=== PATIENT | female | born 1955 | race African-American/Black ===

== ENCOUNTER → 2023-06-09 15:17 | Outpatient (REF) | payer OTHER, SELFPAY ==
[2023-06-10 19:51] LABS: Urine Albumin Negative (Neg - Trace); Urine Bilirubin Negative (Negative); Urine Character Clear (Clear); Urine Color Yellow; Urine Glucose Negative (Negative); Urine Ketone Negative (Negative); Urine Leukocyte Negative (Negative); Urine Nitrite Negative (Negative); Urine Occult Blood Negative (Negative); Urine Urobilinogen Negative (Neg - 1+)
== END ==
LOC: CLAB 15:17
PROVIDERS: ATTENDING PHYSICIAN Obstetrics & Gynecology
DX: N39.0 Urinary tract infection, site not specified (principal)
CPT/HCPCS: 81003; 87086

== ENCOUNTER → 2023-07-25 07:57 | Outpatient (REF) | payer OTHER, SELFPAY ==
[2023-07-25 08:32] LABS: % Basophils 0.5 % (0-2); % Eosinophils 1.5 % (0-6); % Immature Granulocytes 0.4 % (0-0.5); % Lymphocytes 40.7 % (20.5-51.1); % Monocytes 8.3 % (1.7-9.3); % Neutrophils 48.6 % (42.2-75.2); Absolute Eosinophils 0.1 10^3/uL (0-0.7); Absolute Lymphocytes 3.1 10^3/uL (1.2-3.4); Absolute Monocytes 0.6 10^3/uL (0.1-0.6); Absolute Neutrophils 3.7 10^3/uL (1.4-6.5); Hematocrit 40.7 % (37.0-47.0); Hemoglobin 13.2 g/dL (12.0-16.0); Mean Corp Hgb Conc. 32.4 g/dL (33.0-37.0); Mean Corpuscular Hgb 28.4 pg (27.0-31.0); Mean Corpuscular Volume 87.7 fL (81.0-99.0); Mean Platelet Volume 11.3 fL (7.4-10.4); Nucleated Red Blood Cells % 0 %; Platelet Count 258 10^3/uL (130-400); Red Blood Cell Count 4.64 10^6/uL (4.20-5.40); Red Cell Dist. Width 13.6 % (11.5-14.5); White Blood Cell Count 7.6 10^3/uL (4.8-10.8)
[2023-07-25 08:52] LABS: ALT (SGPT) 33 U/L (0-35); AST (SGOT) 30 U/L (14-36); Albumin 5.1 g/dl (3.5-5.0); Alkaline Phosphatase 79 U/L (38-126); Blood Urea Nitrogen 19 mg/dl (7-17); Calcium 9.9 mg/dl (8.4-10.2); Carbon Dioxide 27 mmol/L (22-30); Chloride 103 mmol/L (98-107); Glucose 111 mg/dl (70-99); HDL Cholesterol 45 mg/dl; LDL Cholesterol, Calculated 69 mg/dl; Potassium 3.9 mmol/L (3.5-5.1); Sodium 142 mmol/L (135-145); Total Bilirubin 0.5 mg/dl (0.2-1.3); Total Cholesterol 129 mg/dl (50-199); Total Protein 7.8 g/dl (6.3-8.2); Triglyceride 78 mg/dl (10-149); Very Low Density Lipoprotein 15 mg/dl (0-30); eGFR > 60.00
[2023-07-25 12:23] LABS: Glycohemoglobin (HgbA1c) 6.2 % (4.0-5.6)
[2023-07-26 10:00] LABS: Intact PTH 61.3 pg/ml (13.6-85.8)
== END ==
LOC: REG 07:57
PROVIDERS: ATTENDING PHYSICIAN Nurse Practitioner Family; FAMILY PHYSICIAN Nurse Practitioner Primary Care
DX: E21.3 Hyperparathyroidism, unspecified (principal); E78.00 Pure hypercholesterolemia, unspecified; R73.03 Prediabetes; K76.0 Fatty (change of) liver, not elsewhere classified; R79.89 Other specified abnormal findings of blood chemistry; R09.81 Nasal congestion; J06.9 Acute upper respiratory infection, unspecified; E78.2 Mixed hyperlipidemia
CPT/HCPCS: 36415; 80053; 80061; 83036; 83970; 85025

== ENCOUNTER → 2023-08-08 12:41 | Outpatient (REF) | payer OTHER, SELFPAY ==
[2023-08-08 15:13] LABS: TSH Reflex To Free T4 2.46 uIU/ml (0.47-4.68)
[2023-08-11 19:37] LABS: Almond <0.10 kU/L (<=0.34); Banana <0.10 kU/L (<=0.34); Blue Mussel <0.10 kU/L (<=0.34); Brazil Nut <0.10 kU/L (<=0.34); Cashew Nut <0.10 kU/L (<=0.34); Clam <0.10 kU/L (<=0.34); Crab <0.10 kU/L (<=0.34); Hazel Nut (Filbert) <0.10 kU/L (<=0.34); Lobster <0.10 kU/L (<=0.34); Macadamia Nut <0.10 kU/L (<=0.34); Mild Peanut Ara h 8 <0.10 kU/L (<=0.09); Milk (Cow's) <0.10 kU/L (<=0.34); Oyster <0.10 kU/L (<=0.34); Peanut <0.10 kU/L (<=0.34); Pecan/White Hickory Tree <0.10 kU/L (<=0.34); Pine (Pinot) Nut <0.10 kU/L (<=0.34); Pistachio <0.10 kU/L (<=0.34); Scallop <0.10 kU/L (<=0.34); Severe Peanut Ara h 1 <0.10 kU/L (<=0.09); Severe Peanut Ara h 2 <0.10 kU/L (<=0.09); Severe Peanut Ara h 3 <0.10 kU/L (<=0.09); Severe Peanut Ara h 6 <0.10 kU/L (<=0.09); Severe Peanut Ara h 9 <0.10 kU/L (<=0.09); Shrimp <0.10 kU/L (<=0.34); Walnut/Black Walnut <0.10 kU/L (<=0.34)
== END ==
LOC: REG 12:41
PROVIDERS: ATTENDING PHYSICIAN Nurse Practitioner Family; FAMILY PHYSICIAN Pediatrics
DX: R53.83 Other fatigue (principal)
CPT/HCPCS: 36415; 84443; 86003; 86008

== ENCOUNTER → 2023-08-12 15:17 | Outpatient (REF) | payer OTHER, SELFPAY | LOC: WDC 15:17 | PROVIDERS: ATTENDING PHYSICIAN Obstetrics & Gynecology Gynecology; FAMILY PHYSICIAN Internal Medicine Geriatric Medicine | DX: Z12.31 Encounter for screening mammogram for malignant neoplasm of breast (principal) | CPT/HCPCS: 77063; 77067 ==

== ENCOUNTER → 2023-10-14 15:10 | Outpatient (REF) | payer OTHER, SELFPAY | LOC: RAD 15:10 | PROVIDERS: ATTENDING PHYSICIAN Internal Medicine Cardiovascular Disease; FAMILY PHYSICIAN Nurse Practitioner Primary Care; OTHER PHYSICIAN Nurse Practitioner Family | DX: R60.0 Localized edema (principal); J18.9 Pneumonia, unspecified organism | CPT/HCPCS: 71046; 93971 ==

== ENCOUNTER → 2023-10-22 15:41 | Outpatient (REF) | payer OTHER, SELFPAY | LOC: RAD 15:41 | PROVIDERS: ATTENDING PHYSICIAN Nurse Practitioner Primary Care | DX: M25.571 Pain in right ankle and joints of right foot (principal); M25.471 Effusion, right ankle | CPT/HCPCS: 73610 ==

== ENCOUNTER → 2023-10-30 15:44 | Outpatient (REF) | payer OTHER, SELFPAY ==
[2023-10-30 16:47] LABS: % Basophils 0.7 % (0-2); % Eosinophils 1.5 % (0-6); % Immature Granulocytes 0.3 % (0-0.5); % Lymphocytes 48.3 % (20.5-51.1); % Monocytes 6.9 % (1.7-9.3); % Neutrophils 42.3 % (42.2-75.2); Absolute Basophils 0.1 10^3/uL (0-0.2); Absolute Eosinophils 0.1 10^3/uL (0-0.7); Absolute Lymphocytes 3.6 10^3/uL (1.2-3.4); Absolute Monocytes 0.5 10^3/uL (0.1-0.6); Absolute Neutrophils 3.2 10^3/uL (1.4-6.5); Hematocrit 39.1 % (37.0-47.0); Hemoglobin 12.7 g/dL (12.0-16.0); Mean Corp Hgb Conc. 32.5 g/dL (33.0-37.0); Mean Corpuscular Hgb 28.2 pg (27.0-31.0); Mean Corpuscular Volume 86.9 fL (81.0-99.0); Mean Platelet Volume 12.1 fL (7.4-10.4); Nucleated Red Blood Cells % 0 %; Platelet Count 259 10^3/uL (130-400); Red Cell Dist. Width 13.2 % (11.5-14.5); White Blood Cell Count 7.5 10^3/uL (4.8-10.8)
[2023-10-30 16:59] LABS: Erythrocyte Sed Rate 20 mm/hour (0-20)
[2023-10-30 17:02] LABS: ALT (SGPT) 30 U/L (0-35); AST (SGOT) 32 U/L (14-36); Albumin 5.1 g/dl (3.5-5.0); Alkaline Phosphatase 91 U/L (38-126); Blood Urea Nitrogen 12 mg/dl (7-17); Calcium 9.8 mg/dl (8.4-10.2); Carbon Dioxide 25 mmol/L (22-30); Chloride 106 mmol/L (98-107); Glucose 85 mg/dl (70-99); Potassium 4.2 mmol/L (3.5-5.1); Sodium 142 mmol/L (135-145); Total Bilirubin 0.8 mg/dl (0.2-1.3); Total Protein 7.9 g/dl (6.3-8.2); Uric Acid 6.6 mg/dl (2.5-6.2); eGFR > 60.00
[2023-10-30 17:39] LABS: TSH Reflex To Free T4 2.15 uIU/ml (0.47-4.68)
[2023-10-31 10:18] LABS: Glycohemoglobin (HgbA1c) 6.2 % (4.0-5.6)
== END ==
LOC: REG 15:44
PROVIDERS: ATTENDING PHYSICIAN Nurse Practitioner Primary Care
DX: M25.571 Pain in right ankle and joints of right foot (principal); M25.471 Effusion, right ankle; R73.03 Prediabetes; E66.09 Other obesity due to excess calories
CPT/HCPCS: 36415; 80053; 83036; 84443; 84550; 85025; 85652; 86140; 86618

== ENCOUNTER → 2023-11-28 12:30 | Outpatient (REF) | payer OTHER, SELFPAY | LOC: PAVMRI 12:30 | PROVIDERS: ATTENDING PHYSICIAN Psychiatry & Neurology Neurology; FAMILY PHYSICIAN Nurse Practitioner Primary Care | DX: F07.81 Postconcussional syndrome (principal); G43.E11 Chronic migraine with aura, intractable, with status migrainosus | CPT/HCPCS: 70553 ==

== ENCOUNTER 2023-12-02 14:12 | Outpatient (RCR) | payer OTHER, SELFPAY | END 2023-12-02 23:59 | disposition home or self-care (01) | LOC: RPT 14:12 | PROVIDERS: ATTENDING PHYSICIAN Physician Assistant | DX: M54.40 Lumbago with sciatica, unspecified side (principal); Z73.6 Limitation of activities due to disability | CPT/HCPCS: 97110; 97112; 97162; 97530 ==

== ENCOUNTER → 2023-12-12 15:04 | Outpatient (REF) | payer OTHER, SELFPAY | LOC: PAVMRI 15:04 | PROVIDERS: ATTENDING PHYSICIAN Nurse Practitioner Primary Care | DX: M25.571 Pain in right ankle and joints of right foot (principal); M25.471 Effusion, right ankle | CPT/HCPCS: 73721 ==

== ENCOUNTER → 2023-12-26 15:23 | Outpatient (REF) | payer OTHER, SELFPAY | LOC: MRI 3T 15:23 | PROVIDERS: ATTENDING PHYSICIAN Nurse Practitioner Primary Care | DX: K86.9 Disease of pancreas, unspecified (principal); K76.0 Fatty (change of) liver, not elsewhere classified; D35.01 Benign neoplasm of right adrenal gland | CPT/HCPCS: 74183; A9575 ==

== ENCOUNTER 2024-01-02 14:08 | Outpatient (RCR) | payer OTHER, SELFPAY | END 2024-01-02 23:59 | disposition home or self-care (01) | LOC: RPT 14:08 | PROVIDERS: ATTENDING PHYSICIAN Physician Assistant | DX: M54.40 Lumbago with sciatica, unspecified side (principal); Z73.6 Limitation of activities due to disability | CPT/HCPCS: 97110; 97112; 97530 ==

== ENCOUNTER 2024-01-16 06:27 | Day surgery (SDC) | payer OTHER, SELFPAY ==
--- NOTE | 2024-01-14 10:01 | PTCARENOTE ---
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 She will be driving herself, made aware she is unable to drive home. She will work on transportation, considering uber. She does not have help at home
after surgery. She was made aware of need for assistance 24 hours following anesthesia. She asked about VN care, I explained it would be private pay and offered to give her contact information. She declined and stated she would make other
arrangements. She does not have anyone staying with her mother during surgery, mentioned possibly bringing her. She was made aware her mother is unable come to hospital unattended. Emerita in Dr. De La Rosa's office made aware of pt's situation.
[2024-01-16] VITALS (12 sets, daily range): BP systolic 126–154; BP diastolic 68–93; BMI 29.1
--- NOTE | 2024-01-16 08:23 | SUR.OPER ---
Dr. De La Rosa was tiger texted Note from PAT department. Patient arrived 55 minutes late from her scheduled arrival time as well. KASI Velazquez SDS Procurement Officer was made aware that RN called patient and she was running late. Marcus called OR desk and made
Lorie RN aware.
[2024-01-16] MEDS: NORMOSOL-R/PLASMALYTE-A 1000 IV (09:09)
== END 2024-01-16 15:06 | disposition home or self-care (01) ==
LOC: SDS 06:27
PROVIDERS: ATTENDING PHYSICIAN Obstetrics & Gynecology Gynecology
DX: N84.0 Polyp of corpus uteri (principal); N95.0 Postmenopausal bleeding
CPT/HCPCS: 58558; 88305

== ENCOUNTER 2024-02-02 14:13 | Outpatient (RCR) | payer OTHER, SELFPAY | END 2024-02-02 23:59 | disposition home or self-care (01) | LOC: RPT 14:13 | PROVIDERS: ATTENDING PHYSICIAN Physician Assistant | DX: M54.40 Lumbago with sciatica, unspecified side (principal); Z73.6 Limitation of activities due to disability | CPT/HCPCS: 97110; 97112; 97530 ==

== ENCOUNTER 2024-02-11 14:28 | Outpatient (RCR) | payer OTHER, SELFPAY | END 2024-02-12 15:30 | disposition home or self-care (01) | LOC: RPT 14:28 | PROVIDERS: ATTENDING PHYSICIAN Physician Assistant | DX: M54.40 Lumbago with sciatica, unspecified side (principal); Z73.6 Limitation of activities due to disability | CPT/HCPCS: 97110; 97530 ==

== ENCOUNTER → 2024-04-07 15:30 | Outpatient (REF) | payer OTHER, SELFPAY | LOC: HWRCS 15:30 | PROVIDERS: ATTENDING PHYSICIAN Physician Assistant Medical; FAMILY PHYSICIAN Nurse Practitioner Primary Care | DX: R07.9 Chest pain, unspecified (principal); I10 Essential (primary) hypertension | CPT/HCPCS: 93306 ==

== ENCOUNTER → 2024-06-08 13:42 | Outpatient (REF) | payer OTHER, SELFPAY ==
[2024-06-08 15:45] LABS: IgA 232 mg/dl (70-400); IgG 1016 mg/dl (700-1600); IgM 54 mg/dl (40-230)
[2024-06-08 16:26] LABS: Hepatitis A Antibody, Total Negative (Negative); Hepatitis C Antibody Negative (Negative)
[2024-06-10 20:17] LABS: ANA, IgG Reflex to HEp-2 None Detected (None Detected)
[2024-06-10 20:50] LABS: LKM-1 Ab (IgG) 0.6 U (0.0-24.9)
[2024-06-10 20:51] LABS: Alpha-1-Antitrypsin 108 mg/dL (90-200); Ceruloplasmin 29 mg/dL (16-45)
[2024-06-10 23:40] LABS: tTG IgA Antibody <1.02 FLU (0.00-4.99)
[2024-06-11 02:26] LABS: F-Actin Antibody IgG 10 Units (0-19)
== END ==
LOC: REG 13:42
PROVIDERS: ATTENDING PHYSICIAN Internal Medicine Gastroenterology; FAMILY PHYSICIAN Nurse Practitioner Primary Care
DX: K76.0 Fatty (change of) liver, not elsewhere classified (principal)
CPT/HCPCS: 36415; 82103; 82390; 82784; 83516; 86015; 86038; 86364; 86376; 86381; 86708; 86803

== ENCOUNTER → 2024-06-21 15:12 | Outpatient (REF) | payer OTHER, SELFPAY ==
[2024-06-21 16:10] LABS: % Basophils 0.8 % (0-2); % Eosinophils 1.4 % (0-6); % Immature Granulocytes 0.5 % (0-0.5); % Lymphocytes 45.3 % (20.5-51.1); % Monocytes 7.1 % (1.7-9.3); % Neutrophils 44.9 % (42.2-75.2); Absolute Basophils 0.1 10^3/uL (0-0.2); Absolute Eosinophils 0.1 10^3/uL (0-0.7); Absolute Lymphocytes 3.4 10^3/uL (1.2-3.4); Absolute Monocytes 0.5 10^3/uL (0.1-0.6); Absolute Neutrophils 3.4 10^3/uL (1.4-6.5); Hemoglobin 12.7 g/dL (12.0-16.0); Mean Corp Hgb Conc. 34.3 g/dL (33.0-37.0); Mean Corpuscular Hgb 28.6 pg (27.0-31.0); Mean Corpuscular Volume 83.3 fL (81.0-99.0); Mean Platelet Volume 10.8 fL (7.4-10.4); Nucleated Red Blood Cells % 0 %; Platelet Count 210 10^3/uL (130-400); Red Blood Cell Count 4.44 10^6/uL (4.20-5.40); White Blood Cell Count 7.6 10^3/uL (4.8-10.8)
[2024-06-21 16:17] LABS: Erythrocyte Sed Rate 5 mm/hour (0-20)
[2024-06-21 16:38] LABS: ALT (SGPT) 49 U/L (0-35); AST (SGOT) 32 U/L (14-36); Albumin 4.6 g/dl (3.5-5.0); Alkaline Phosphatase 96 U/L (38-126); Blood Urea Nitrogen 13 mg/dl (7-17); Calcium 9.3 mg/dl (8.4-10.2); Carbon Dioxide 27 mmol/L (22-30); Chloride 104 mmol/L (98-107); Creatine Phosphokinase 285 U/L (30-135); Glucose 88 mg/dl (70-99); HDL Cholesterol 40 mg/dl; LDL Cholesterol, Calculated 162 mg/dl; Potassium 3.7 mmol/L (3.5-5.1); Sodium 140 mmol/L (135-145); Total Bilirubin 0.5 mg/dl (0.2-1.3); Total Cholesterol 227 mg/dl (50-199); Total Protein 7.3 g/dl (6.3-8.2); Triglyceride 125 mg/dl (10-149); Very Low Density Lipoprotein 25 mg/dl (0-30); eGFR > 60.00
[2024-06-21 16:59] LABS: Vitamin D, 25-OH*** 34.9 ng/mL (30-80)
[2024-06-21 17:12] LABS: TSH Reflex To Free T4 2.44 uIU/ml (0.47-4.68)
[2024-06-22 09:22] LABS: Glycohemoglobin (HgbA1c) 6.3 % (4.0-5.6)
== END ==
LOC: REG 15:12
PROVIDERS: ATTENDING PHYSICIAN Nurse Practitioner Primary Care
DX: E78.00 Pure hypercholesterolemia, unspecified (principal); I10 Essential (primary) hypertension; R73.03 Prediabetes; M25.59 Pain in other specified joint; G44.89 Other headache syndrome
CPT/HCPCS: 36415; 80053; 80061; 82306; 82550; 83036; 84443; 85025; 85652; 86140; 86618

== ENCOUNTER 2024-07-10 17:56 | Emergency (ER) | payer OTHER, SELFPAY ==
[2024-07-10] VITALS (7 sets, daily range): BP systolic 123–185; BP diastolic 69–104; BMI 28.7
[2024-07-10] MEDS: PEPCID 20 MG IV (18:52)
[2024-07-10] MEDS: BENADRYL 25 MG IV (18:53)
[2024-07-10] MEDS: SOLU-MEDROL PF 125 MG IV (18:56)
[2024-07-10 19:05] LABS: Hematocrit 36.9 % (37.0-47.0); Hemoglobin 12.4 g/dL (12.0-16.0); Mean Corp Hgb Conc. 33.6 g/dL (33.0-37.0); Mean Corpuscular Hgb 28.8 pg (27.0-31.0); Mean Corpuscular Volume 85.6 fL (81.0-99.0); Mean Platelet Volume 10.4 fL (7.4-10.4); Platelet Count 253 10^3/uL (130-400); Red Blood Cell Count 4.31 10^6/uL (4.20-5.40); Red Cell Dist. Width 12.8 % (11.5-14.5); White Blood Cell Count 6.7 10^3/uL (4.8-10.8)
[2024-07-10 19:14] LABS: ALT (SGPT) 44 U/L (0-35); AST (SGOT) 42 U/L (14-36); Albumin 4.8 g/dl (3.5-5.0); Alkaline Phosphatase 82 U/L (38-126); Blood Urea Nitrogen 9 mg/dl (7-17); Calcium 9.4 mg/dl (8.4-10.2); Carbon Dioxide 25 mmol/L (22-30); Chloride 104 mmol/L (98-107); Estimated Creatinine Clearance 49 ml/min; Glucose 116 mg/dl (70-99); Potassium 3.2 mmol/L (3.5-5.1); Sodium 142 mmol/L (135-145); Total Bilirubin 0.8 mg/dl (0.2-1.3); Total Protein 7.2 g/dl (6.3-8.2); eGFR > 60.00
[2024-07-10] MEDS: DUONEB 3 ML INH (19:21)
[2024-07-10] MEDS: ADRENALIN 0.3 MG IM (19:21)
[2024-07-10 19:25] LABS: % Basophils 0.3 % (0-2); % Eosinophils 1.8 % (0-6); % Immature Granulocytes 0.4 % (0-0.5); % Lymphocytes 44.5 % (20.5-51.1); Absolute Eosinophils 0.1 10^3/uL (0-0.7); Absolute Monocytes 0.4 10^3/uL (0.1-0.6); Absolute Neutrophils 3.2 10^3/uL (1.4-6.5); Nucleated Red Blood Cells % 0 %
--- NOTE | 2024-07-10 20:05 | ED.GENMED ---
History of Present Illness
General
Chief Complaint: Allergic Reaction
Source: patient
Exam Limitations: none
Time Seen by Provider: 07/10/24 18:38
Nursing documentation reviewed up to this point in time: agreed with
History of Present Illness
History of Present Illness:
69-year-old female with a past medical history of asthma/bronchitis, CAD, hypertension, hyperlipidemia who presents to the emergency room for evaluation of allergic reaction. Patient says she is allergic to many different things. She says that she
was being treated for pneumonia with amoxicillin for for 5 days, yesterday saw her doctor who said that her breath sounds were still abnormal and so she was switched from amoxicillin to Augmentin. Patient took first dose of this last night and this
morning she woke up with puffiness in the face. She says she also felt some tingling/swelling of the tongue. Denies any tightness in the throat or shortness of breath. She does have persistent cough but this has been ongoing for over a week. She
denies any nausea, vomiting, abdominal cramping. She has not noticed any itching or pruritus. She says she has had similar allergic reactions in the past many times.
Past History
Past History
ED Past Medical History: GERD, HTN and Hypercholesterolemia; Negative CAD or [place]
ED Past Surgical History: Gynecological (D&C), Tonsilectomy and Other (Food allergy with walnuts)
Social History
Tobacco: Former smoker
Alcohol: None
Drug: None
Personal: Single
Living: with family
Employment: Employed
Family History
Family History: Hypertension and CAD; Negative Sudden
Review of Systems
Review of Systems
All Other Systems: ROS reviewed and negative except as documented in HPI and ROS
EENT: Reports other (Facial swelling)
Respiratory: Reports cough
Cardiac: Denies chest pain
ABD/GI: Denies abdominal pain, nausea or vomiting
: Denies flank pain
Musculoskeletal: Denies neck pain or back pain
Skin: Denies itching or rash
Neurological: Denies dizzy or headache
Phy Exam
Physical Exam
Physical Exam:
General: Awake, alert, oriented x3; no acute distress
Head: Normocephalic, atraumatic
Face: Patient has some periorbital edema bilaterally as well as some maxillary edema; no significant swelling of the lips
Eyes: Conjunctiva normal
Throat: Airway intact, handling secretions, no swelling of the tongue, midline uvula with no edema
Neck: Trachea midline
Lungs: Patient has occasional cough, scattered wheezing bilaterally
Heart: Regular rate and rhythm, no murmurs, gallops, or rubs
Abd: Soft, non distended, nontender
Neuro: No gross deficits
Skin: no rash or hives appreciated
Extremities: No edema in extremities, warm and well-perfused
Scores
Heart Failure Risk
Heart Failure Risk Score: Not Applicable
Heart Score for Chest Pain Patients
STEMI patient?: Not applicable
Withdrawal Assessment of Alcohol
Withdrawal Assessment Completed?: Not applicable
Course
Orders/Labs/Results
Orders:
Orders
07/10/24 18:43
Diphenhydramine [Benadryl] 25 mg IV NOW STA
Famotidine [Pepcid] 20 mg IV NOW STA
MethylPREDNISolone PF [Solu-Medrol Pf] 125 mg IV NOW STA
07/10/24 18:50
CMP [Comprehensive Metabolic Panel] Urgent
Complete Blood Count/With Diff Urgent
07/10/24 19:08
EPINEPHrine PF [Adrenalin] 0.3 mg IM NOW STA
Ipratropium/Albuterol Sulfate [Duoneb] 3 ml INH R NOW ONE
07/10/24 20:25
CR Chest - 2 Views Urgent
Comment:
Reason For Exam: cough
Abnormal Lab Results
07/10/24
18:50
Hct 36.9 L %
(37.0-47.0)
Potassium 3.2 L mmol/L
(3.5-5.1)
Glucose 116 H mg/dl
(70-99)
AST 42 H U/L
(14-36)
ALT 44 H U/L
(0-35)
07/10/24 18:50
07/10/24 18:50
Vital Signs
Initial and Last Documented VS:
Initial Vital Signs
Temp Pulse Resp BP Pulse Ox
36.3 C 82 16 172/104 98
07/10/24 17:59 07/10/24 17:59 07/10/24 17:59 07/10/24 17:59 07/10/24 17:59
Last Documented Vital Signs
Temp Pulse Resp BP Pulse Ox
36.3 C 79 26 123/69 96
07/10/24 17:59 07/10/24 21:15 07/10/24 21:15 07/10/24 22:00 07/10/24 21:37
MDM/Problems Addressed
Differential Diagnosis Includes:
Allergic reaction
MDM/Problems Addressed:
69-year-old female who presents to the emergency room for evaluation of facial swelling, tongue tingling/swelling started a few hours after her first dose of Augmentin. She has had coughing but this is not an acute issue�was on amoxicillin for
pneumonia switched to Augmentin by PCP since symptoms are not improving. Vitals and exam as above. She does have scattered wheezing suspect more likely from respiratory illness rather than anaphylaxis however she also has some facial edema as well
and so we will plan to treat with IM epinephrine. Treat with steroid, Benadryl, Pepcid. Send basic labs and obtain a chest x-ray with persistent cough. Treat with DuoNeb for wheezing. Reassess after the above.
Facial swelling resolved. Wheezing resolved after treatment. Continue to monitor.
Labs reviewed�no leukocytosis, CMP shows mild hypokalemia otherwise unremarkable. Chest x-ray reviewed by me shows no acute disease. I did review outpatient x-ray from a few days ago�this also showed no pneumonia. Her clinical picture really
seems more consistent with acute bronchitis rather than bacterial pneumonia given her recent allergic reaction would err towards discontinuing antibiotics in favor of course of steroids. She did improve significantly with albuterol�can provide
nebulizer machine and albuterol prescription. Patient very comfortable with this. Observed for 4+ hours with resolution of allergic symptoms; stable for discharge.
Acute Exacerbation and/or Progression of Chronic Illness:
Acutely hypertensive
Acute Exacerbation and/or Progression of Chronic Illness: HTN
*Radiology
Radiology exam reviewed: preliminary read by ED provider
*Pulse Oximetry
Patient hypoxic: no
*Critical Care Note
Total Time (30-74mins, 75-104mins- exclusive of procedures): Not Applicable
Data Reviewed
Review of Other/Old Records Reveals: Labs and Records
Source: patient and records
ED Attending Note
-
Portions of this chart may have been created with voice recognition software.� Occasional wrong word or��sound alike� substitutions may have occurred due to the inherent limitations of voice recognition software.
Discharge Plan
Departure
Patient Disposition: Home (Routine Discharge)
Date of Disposition: 07/10/24
Time of Disposition: 22:25
Patient with high blood pressure during this ER visit?: Yes
Discharge Problem:
Allergic reaction, Acute bronchitis
Instructions: Acute bronchitis in adults, Allergic reaction - ED discharge instructions
Prescriptions:
New
epinephrine [EpiPen 2-Jeff] 0.3 mg/0.3 mL auto-injector
0.3 mg IM ONCE Qty: 2 0RF
prednisone 50 mg tablet
50 mg PO DAILY Qty: 5 0RF
albuterol sulfate 2.5 mg /3 mL (0.083 %) solution for nebulization
2.5 mg inhalation Q4H PRN (Reason: shortness of breath or wheezing) Qty: 75 0RF
No Action
atorvastatin 40 MG tablet
40 mg PO DAILY
amlodipine 5 MG tablet
5 mg PO DAILY
epinephrine [EpiPen] 0.3 mg/0.3 mL Auto-Injector
0.3 mg IM Q5-15M PRN (Reason: anaphylaxis)
ascorbic acid (vitamin C) [Vitamin C] 500 MG tablet
500 mg PO DAILY
albuterol sulfate [ProAir HFA] 90 mcg/actuation Hfa Aerosol Inhaler
2 puff INHALATION 6XD PRN (Reason: asthma)
Referrals:
Inocencia Wallace CRNP [Family Provider] - Follow up in 5-7 days
Interventions
Interventions:
*Risk Screen - Suicide Last Done: 07/10/24 18:37
*General Assessment Last Done: 07/10/24 18:36
*Neglect/Abuse Screening Last Done: 07/10/24 18:37
*ED- Fall Risk Assessment Last Done: 07/10/24 18:36
*ED COVID-19 Vaccine History Last Done: 07/10/24 18:36
ED- Cardiac Assessment Last Done: 07/10/24 18:37
ED- Pulmonary Assessment Last Done: 07/10/24 18:37
ED-Skin Assessment Last Done: 07/10/24 18:37
Discharge Date and Time
Print Language: ITALIAN
[2024-07-11] VITALS: BP 138/79
== END 2024-07-11 03:26 | disposition home or self-care (01) ==
LOC: EMR 17:56
PROVIDERS: EMERGENCY PHYSICIAN Emergency Medicine; FAMILY PHYSICIAN Nurse Practitioner Primary Care
DX: J20.9 Acute bronchitis, unspecified (principal); T78.40XA Allergy, unspecified, initial encounter; Y92.9 Unspecified place or not applicable; I25.10 Atherosclerotic heart disease of native coronary artery without angina pectoris; I10 Essential (primary) hypertension; E78.00 Pure hypercholesterolemia, unspecified; J45.909 Unspecified asthma, uncomplicated; K21.9 Gastro-esophageal reflux disease without esophagitis; Z82.49 Family history of ischemic heart disease and other diseases of the circulatory system; Z87.891 Personal history of nicotine dependence
CPT/HCPCS: 99283; 94640; 96374; 96375; 96372; 71046; 80053; 85025

== ENCOUNTER 2024-07-12 14:22 | Emergency (ER) | payer OTHER, SELFPAY ==
[2024-07-12 14:24] VITALS: BP 163/90
[2024-07-12 14:50] LABS: % Basophils 0.4 % (0-2); % Eosinophils 0.1 % (0-6); % Immature Granulocytes 1.5 % (0-0.5); % Lymphocytes 15.5 % (20.5-51.1); % Monocytes 1.9 % (1.7-9.3); % Neutrophils 80.6 % (42.2-75.2); Absolute Basophils 0.1 10^3/uL (0-0.2); Absolute Immature Granulocytes 0.2 10^3/uL (0-0.05); Absolute Lymphocytes 2.3 10^3/uL (1.2-3.4); Absolute Monocytes 0.3 10^3/uL (0.1-0.6); Absolute Neutrophils 11.7 10^3/uL (1.4-6.5); Hemoglobin 12.8 g/dL (12.0-16.0); Mean Corp Hgb Conc. 33.7 g/dL (33.0-37.0); Mean Corpuscular Hgb 29.3 pg (27.0-31.0); Mean Platelet Volume 10.7 fL (7.4-10.4); Nucleated Red Blood Cells % 0 %; Platelet Count 302 10^3/uL (130-400); Red Blood Cell Count 4.37 10^6/uL (4.20-5.40); Red Cell Dist. Width 13.2 % (11.5-14.5); White Blood Cell Count 14.5 10^3/uL (4.8-10.8)
[2024-07-12 15:00] LABS: ALT (SGPT) 46 U/L (0-35); AST (SGOT) 35 U/L (14-36); Albumin 4.6 g/dl (3.5-5.0); Alkaline Phosphatase 88 U/L (38-126); Blood Urea Nitrogen 11 mg/dl (7-17); Calcium 9.4 mg/dl (8.4-10.2); Carbon Dioxide 25 mmol/L (22-30); Chloride 107 mmol/L (98-107); Glucose 125 mg/dl (70-99); Sodium 141 mmol/L (135-145); Total Bilirubin 0.5 mg/dl (0.2-1.3); Total Protein 7.6 g/dl (6.3-8.2); eGFR > 60.00
--- NOTE | 2024-07-12 15:47 | ED.GENMED ---
History of Present Illness
General
Chief Complaint: Cough
Source: patient
Exam Limitations: none
Time Seen by Provider: 07/12/24 15:18
Nursing documentation reviewed up to this point in time: agreed with
History of Present Illness
History of Present Illness:
Patient presents to ED secondary to persistent cough and shortness of breath over the past 10 days. denies fever or chills. Denies loss of appetite. Denies headache or dizziness. Denies nausea, vomiting, diarrhea. Denies rash. Denies recent
travel. Denies sick contact. Patient has been evaluated by her primary care physician initially at onset of her symptoms. Afterwards, patient was evaluated in ED as well, secondary to possible reaction to Augmentin prescribed by her primary care
physician. Since then, patient has been utilizing inhaler at home along with prednisone, without improvement in symptoms.
Past History
Past History
ED Past Medical History: GERD, HTN and Hypercholesterolemia; Negative CAD or [place]
ED Past Surgical History: Gynecological (D&C), Tonsilectomy and Other (Food allergy with walnuts)
Social History
Tobacco: Former smoker
Alcohol: None
Drug: None
Personal: Single
Living: with family
Employment: Employed
Family History
Family History: Hypertension and CAD; Negative Sudden
Review of Systems
Review of Systems
Allergies reviewed?: Yes
All Other Systems: ROS reviewed and negative except as documented in HPI and ROS
Constitutional: Reports no symptoms
EENT: Reports no symptoms
Respiratory: Reports cough and trouble breathing
Cardiac: Reports no symptoms
ABD/GI: Reports no symptoms
Musculoskeletal: Reports no symptoms
Skin: Reports no symptoms
Neurological: Reports no symptoms
Phy Exam
Physical Exam
Physical Exam:
Physical Exam
General: no apparent distress, not acutely ill. afebrile
Head: nc/at. eomi
Neck: supple. no meningeal signs. normal posterior pharynx
Heart: s1/s2 regular rate and rhythm, no murmur. equal radial pulses.
Lungs: no acute respiratory distress. mild expiratory wheezing bilaterally
Abdomen: normal bowel sounds. not tender.
Neuro: alert and oriented x 3. no focal neurological deficits
Skin: no rash
Psychiatric: well kept. interactive and cooperative
Extremities: no edema. no calf tenderness.
Course
Orders/Labs/Results
Orders:
Orders
07/12/24 14:35
Complete Blood Count/With Diff Urgent
Comprehensive Metabolic Panel Urgent
Magnesium Urgent
Comment: ADD ON
07/12/24 15:51
Ipratropium/Albuterol Sulfate [Duoneb] 3 ml INH R NOW STA
07/12/24 15:58
D-Dimer Urgent
07/12/24 16:02
Add On- LAB Urgent
Tests Added?: magnesium
07/12/24 16:03
Benzonatate [Tessalon Perles] 100 mg PO NOW STA
07/12/24 16:35
CT Chest With Iv Contrast Urgent
Comment:
Reason For Exam: cough/sob
07/12/24 19:02
Doxycycline [Vibramycin] 100 mg PO NOW STA
Ipratropium/Albuterol Sulfate [Duoneb] 3 ml INH R NOW STA
07/12/24 19:44
Doxycycline [Vibramycin] 100 mg .ROUTE .STK-MED ONE
Abnormal Lab Results
07/12/24
14:35
WBC 14.5 H 10^3/uL
(4.8-10.8)
MPV 10.7 H fL
(7.4-10.4)
Abs Immat Gran (auto) 0.2 H 10^3/uL
(0-0.05)
Absolute Neuts (auto) 11.7 H 10^3/uL
(1.4-6.5)
Immature Gran % 1.5 H %
(0-0.5)
Neutrophils % 80.6 H %
(42.2-75.2)
Lymphocytes % 15.5 L %
(20.5-51.1)
Glucose 125 H mg/dl
(70-99)
ALT 46 H U/L
(0-35)
07/12/24 14:35
07/12/24 14:35
Vital Signs
Initial and Last Documented VS:
Initial Vital Signs
Temp Pulse Resp BP Pulse Ox
98.3 F 74 18 163/90 96
07/12/24 14:24 07/12/24 14:24 07/12/24 14:24 07/12/24 14:24 07/12/24 14:24
Last Documented Vital Signs
Temp Pulse Resp BP Pulse Ox
98.3 F 93 20 149/97 97
07/12/24 14:24 07/12/24 21:36 07/12/24 21:36 07/12/24 21:36 07/12/24 21:36
MDM/Problems Addressed
MDM/Problems Addressed:
D-dimer negative. In light of patient's multiple chest x-ray recently, decision made to obtain CT chest with IV contrast to evaluate patient for an occult pneumonia versus any other etiology that may potentially explain patient's presenting
symptoms.
CT report reviewed and discussed with patient. After discussion, decision made to start patient on doxycycline, along with continuation of already prescribed prednisone, as well as cough medication. In addition, patient given instructions on how
to use already purchased nebulizer machine, which she has not been using, as patient was unclear on how to use the machine.
Pulmonology appointment made for the patient prior to discharge, on July 27.
Patient otherwise is afebrile, hemodynamically stable, without any acute respiratory distress, at time of discharge. Return precautions provided to patient prior to discharge.
*Critical Care Note
Total Time (30-74mins, 75-104mins- exclusive of procedures): Not Applicable
ED Attending Note
-
Portions of this chart may have been created with voice recognition software.� Occasional wrong word or��sound alike� substitutions may have occurred due to the inherent limitations of voice recognition software.
Discharge Plan
Departure
Patient Disposition: Home (Routine Discharge)
Date of Disposition: 07/12/24
Time of Disposition: 21:11
Patient with high blood pressure during this ER visit?: Yes
Discharge Problem:
Pneumonia
Instructions: Pneumonia, Adult (DC)
Prescriptions:
New
doxycycline monohydrate 100 mg capsule
100 mg PO BID Qty: 13 0RF
No Action
atorvastatin 40 MG tablet
40 mg PO DAILY
amlodipine 5 MG tablet
5 mg PO DAILY
epinephrine [EpiPen] 0.3 mg/0.3 mL Auto-Injector
0.3 mg IM Q5-15M PRN (Reason: anaphylaxis)
ascorbic acid (vitamin C) [Vitamin C] 500 MG tablet
500 mg PO DAILY
albuterol sulfate [ProAir HFA] 90 mcg/actuation Hfa Aerosol Inhaler
2 puff INHALATION 6XD PRN (Reason: asthma)
epinephrine [EpiPen 2-Jeff] 0.3 mg/0.3 mL auto-injector
0.3 mg IM ONCE Qty: 2 0RF
prednisone 50 mg tablet
50 mg PO DAILY Qty: 5 0RF
albuterol sulfate 2.5 mg /3 mL (0.083 %) solution for nebulization
2.5 mg inhalation Q4H PRN (Reason: shortness of breath or wheezing) Qty: 75 0RF
Referrals:
NONE,* [Active] -
Vishal Cruz MD [Active] -
Activity Restrictions/Additional Instructions:
As discussed, please follow-up with your primary care physician as well as referred house coordinator, already scheduled for an appointment on July 27, for reevaluation. Your prescription has been sent electronically to [facility] pharmacy in [place].
Interventions
Interventions:
*Risk Screen - Suicide Last Done: 07/12/24 14:24
*General Assessment Last Done: 07/12/24 14:24
*Neglect/Abuse Screening Last Done: 07/12/24 14:24
*ED- Fall Risk Assessment Last Done: 07/12/24 21:47
*ED COVID-19 Vaccine History Last Done: 07/12/24 14:24
*Nursing Disposition Last Done: 07/12/24 21:47
ED- Pulmonary Assessment Last Done: 07/12/24 16:04
Discharge Date and Time
Discharge Date/Time: 07/12/24 21:48
Print Language: AZERI
[2024-07-12] MEDS: DUONEB 3 ML INH ×2 (16:02→19:20)
[2024-07-12] MEDS: TESSALON PERLES 100 MG PO (16:11)
[2024-07-12 16:49] LABS: Magnesium 2.2 mg/dl (1.6-2.3)
[2024-07-12] MEDS: VIBRAMYCIN PO ×2 (19:15→19:18)
[2024-07-12] MEDS: VIBRAMYCIN 100 MG PO (19:46)
[2024-07-12 21:36] VITALS: BP 149/97
== END 2024-07-12 21:48 | disposition home or self-care (01) ==
LOC: EMR 14:22
PROVIDERS: Emergency Medicine; EMERGENCY PHYSICIAN Emergency Medicine; FAMILY PHYSICIAN Internal Medicine Geriatric Medicine
DX: J18.9 Pneumonia, unspecified organism (principal); K21.9 Gastro-esophageal reflux disease without esophagitis; I10 Essential (primary) hypertension; E78.00 Pure hypercholesterolemia, unspecified; Z87.891 Personal history of nicotine dependence
CPT/HCPCS: 94640; 99284; 71260; 80053; 83735; 85025; 85379; Q9967

== ENCOUNTER → 2024-08-13 13:15 | Outpatient (REF) | payer OTHER, SELFPAY | LOC: WDC 13:15 | PROVIDERS: ATTENDING PHYSICIAN Obstetrics & Gynecology Gynecology; FAMILY PHYSICIAN Nurse Practitioner Primary Care | DX: Z12.31 Encounter for screening mammogram for malignant neoplasm of breast (principal) | CPT/HCPCS: 77063; 77067 ==

== ENCOUNTER → 2024-09-01 08:39 | Outpatient (REF) | payer OTHER, SELFPAY ==
[2024-09-01 09:46] LABS: Glycohemoglobin (HgbA1c) 6.4 % (4.0-5.6)
[2024-09-01 10:00] LABS: ALT (SGPT) 43 U/L (0-35); AST (SGOT) 30 U/L (14-36); Alkaline Phosphatase 84 U/L (38-126); Blood Urea Nitrogen 11 mg/dl (7-17); Calcium 9.7 mg/dl (8.4-10.2); Carbon Dioxide 25 mmol/L (22-30); Chloride 108 mmol/L (98-107); Glucose 104 mg/dl (70-99); HDL Cholesterol 38 mg/dl; LDL Cholesterol, Calculated 88 mg/dl; Potassium 3.9 mmol/L (3.5-5.1); Sodium 144 mmol/L (135-145); Total Bilirubin 0.7 mg/dl (0.2-1.3); Total Cholesterol 151 mg/dl (50-199); Total Protein 7.2 g/dl (6.3-8.2); Triglyceride 127 mg/dl (10-149); Very Low Density Lipoprotein 25 mg/dl (0-30); eGFR > 60.00
[2024-09-01 10:13] LABS: IgA 179 mg/dl (70-400)
[2024-09-01 10:51] LABS: Vitamin B12 582 pg/ml (239-931)
[2024-09-03 11:39] LABS: Syphilis/T. pallidum Ab Reflex Negative (Negative)
[2024-09-04 08:29] LABS: Endomysial IgA Antibody Titer <1:10 (<1:10)
== END ==
LOC: REG 08:39
PROVIDERS: ATTENDING PHYSICIAN Nurse Practitioner Adult Health; FAMILY PHYSICIAN Nurse Practitioner Primary Care
DX: F07.81 Postconcussional syndrome (principal); E53.8 Deficiency of other specified B group vitamins; R14.0 Abdominal distension (gaseous); R41.89 Other symptoms and signs involving cognitive functions and awareness; E78.00 Pure hypercholesterolemia, unspecified; R73.03 Prediabetes
CPT/HCPCS: 36415; 80053; 80061; 82607; 82784; 83036; 83516; 86231; 86780

== ENCOUNTER → 2024-09-21 11:13 | Outpatient (REF) | payer OTHER, SELFPAY | LOC: HWRAD 11:13 | PROVIDERS: ATTENDING PHYSICIAN Internal Medicine | DX: R91.8 Other nonspecific abnormal finding of lung field (principal) | CPT/HCPCS: 71250 ==

== ENCOUNTER → 2024-09-29 08:20 | Outpatient (REF) | payer OTHER, SELFPAY ==
[2024-09-29 10:22] LABS: Blood Urea Nitrogen 9 mg/dl (7-17); Calcium 9.6 mg/dl (8.4-10.2); Carbon Dioxide 27 mmol/L (22-30); Chloride 110 mmol/L (98-107); Glucose 101 mg/dl (70-99); Potassium 3.9 mmol/L (3.5-5.1); Sodium 146 mmol/L (135-145); eGFR > 60.00
== END ==
LOC: REG 08:20
PROVIDERS: ATTENDING PHYSICIAN Physician Assistant Medical; FAMILY PHYSICIAN Nurse Practitioner Primary Care
DX: R60.0 Localized edema (principal); I10 Essential (primary) hypertension
CPT/HCPCS: 36415; 80048

== ENCOUNTER 2024-10-01 06:18 | Outpatient (RCR) | payer OTHER, SELFPAY | END 2024-10-01 23:59 | disposition home or self-care (01) | LOC: ROT 06:18 | PROVIDERS: ATTENDING PHYSICIAN Nurse Practitioner Adult Health; FAMILY PHYSICIAN Nurse Practitioner Primary Care | DX: R41.89 Other symptoms and signs involving cognitive functions and awareness (principal); F07.81 Postconcussional syndrome; Z73.6 Limitation of activities due to disability | CPT/HCPCS: 92507; 92523; 97167 ==

== ENCOUNTER 2024-10-20 23:57 | Emergency (ER) | payer OTHER, SELFPAY ==
[2024-10-21 00:02] VITALS: BP 146/84
[2024-10-21 00:33] LABS: % Basophils 0.7 % (0-2); % Eosinophils 1.5 % (0-6); % Immature Granulocytes 0.9 % (0-0.5); % Lymphocytes 46.9 % (20.5-51.1); % Monocytes 7.1 % (1.7-9.3); % Neutrophils 42.9 % (42.2-75.2); Absolute Basophils 0.1 10^3/uL (0-0.2); Absolute Eosinophils 0.1 10^3/uL (0-0.7); Absolute Immature Granulocytes 0.1 10^3/uL (0-0.05); Absolute Lymphocytes 3.8 10^3/uL (1.2-3.4); Absolute Monocytes 0.6 10^3/uL (0.1-0.6); Absolute Neutrophils 3.5 10^3/uL (1.4-6.5); Hematocrit 38.2 % (37.0-47.0); Hemoglobin 12.7 g/dL (12.0-16.0); Mean Corp Hgb Conc. 33.2 g/dL (33.0-37.0); Mean Corpuscular Hgb 28.5 pg (27.0-31.0); Mean Corpuscular Volume 85.7 fL (81.0-99.0); Nucleated Red Blood Cells % 0.2 %; Platelet Count 255 10^3/uL (130-400); Red Blood Cell Count 4.46 10^6/uL (4.20-5.40); Red Cell Dist. Width 13.2 % (11.5-14.5); White Blood Cell Count 8.1 10^3/uL (4.8-10.8)
[2024-10-21 00:50] LABS: Troponin I < 0.012 ng/ml
[2024-10-21 01:02] LABS: ALT (SGPT) 45 U/L (0-35); AST (SGOT) 33 U/L (14-36); Albumin 4.7 g/dl (3.5-5.0); Alkaline Phosphatase 82 U/L (38-126); Blood Urea Nitrogen 17 mg/dl (7-17); Calcium 9.8 mg/dl (8.4-10.2); Carbon Dioxide 26 mmol/L (22-30); Chloride 110 mmol/L (98-107); Glucose 124 mg/dl (70-99); Potassium 3.8 mmol/L (3.5-5.1); Sodium 145 mmol/L (135-145); Total Bilirubin 0.6 mg/dl (0.2-1.3); Total Protein 7.3 g/dl (6.3-8.2); eGFR > 60.00
[2024-10-21 01:10] VITALS: BP 136/90
[2024-10-21 01:29] VITALS: BMI 29.5
[2024-10-21 02:00] VITALS: BP 147/87
[2024-10-21 03:00] VITALS: BP 148/78
[2024-10-21 04:51] LABS: Lipase 148 U/L (23-300)
[2024-10-21 05:06] LABS: Troponin I < 0.012 ng/ml
--- NOTE | 2024-10-21 05:45 | ED.GENMED ---
History of Present Illness
General
Chief Complaint: Chest Pain
Source: patient
Exam Limitations: none
Time Seen by Provider: 10/21/24 03:55
Nursing documentation reviewed up to this point in time: agreed with
History of Present Illness
History of Present Illness:
This is a 69-year-old woman with history of hypertension, hyperlipidemia, GERD, obesity, chest pain with no prior history of CAD.
She notes several day history of intermittent substernal/left parasternal chest pain. Nonradiating. No definitive aggravating or relieving factors. Over the past several days she has noted intermittent chest pain that is for the most part brief
in nature but occasional episodes of 'lingering chest discomfort' She called her gis administrator and she has an appointment with her gis administrator, Dr. Moi Asif scheduled for tomorrow.
Currently chest pain-free and comfortable.
No recent travel. No leg pain or swelling.
She has had some chronic right ankle pain, more so over the past year with attempted increasing daily walking with attempt to lose weight. She has been following with her PCP as well as podiatry regarding this right ankle pain and is scheduled to
initiate physical therapy.
Past History
Past History
ED Past Medical History: GERD, HTN, Hypercholesterolemia and Other (Obesity); Negative CAD or [place]
ED Past Surgical History: Gynecological (D&C), Tonsilectomy and Other (Food allergy with walnuts)
Social History
Tobacco: Former smoker
Alcohol: None
Drug: None
Personal: Single
Living: with family
Employment: Employed
Family History
Family History: Hypertension and CAD; Negative Sudden
Phy Exam
Physical Exam
Physical Exam:
GENERAL: 69-year-old woman appears somewhat younger than stated age. Sleeps when undisturbed, easily arousable. Once awake she is awake and alert, oriented x 3, pleasant and in no acute distress.
EYE: anicteric
NECK: Supple, nontender, no meningismus, no significant adenopathy.
ENT: oral mucosa is moist. No rhinorrhea.
CARDIAC: Regular rate and rhythm. no murmur. Mild to moderate tenderness left mid to distal parasternal region. Palpation seems to exactly reproduce patient's pain complaint.
LUNGS: Clear breath sounds bilaterally, no acute respiratory distress, no wheezes/rales/rhonchi
ABDOMEN: Rotund, soft, nondistended, mild tenderness right upper quadrant without rebound or guarding, no r/g, no cvat. normoactive BS.
NEUROLOGICAL: Alert and oriented x3, no focal neuro deficits.
SKIN: Warm and dry, normal color, skin intact. No rash.
MUSCULOSKELETAL: No C/C/E. peripheral pulses are full and equal b/l. No palpable tenderness.
PSYCH: Normal and appropriate interaction.
Scores
Heart Score for Chest Pain Patients
STEMI patient?: No
History: Slightly or Non-Suspicious
ECG: Normal
Age: >/= 65 years
Risk Factors: 1 or 2 Risk Factors
Troponin: </= Normal Limit
Heart Score for Chest Pain Patients: 3
Heart Score Risk: 2.5% MACE over next 6 weeks
Course
Orders/Labs/Results
Orders:
Orders
10/21/24 00:02
Electrocardiogram (*1) Urgent
Reason for Study: Chest Pain
Cardiac Monitoring- Treatment ONCE
EKG- Treatment ONCE
10/21/24 00:17
Complete Blood Count/With Diff Urgent
Comprehensive Metabolic Panel Urgent
Lipase Urgent
Comment: ADDED
Troponin I Urgent
10/21/24 04:20
US Abdomen Complete/Upper Urgent
Comment:
Reason For Exam: RUQ pain
10/21/24 04:21
CR Chest - 2 Views Urgent
Comment:
Reason For Exam: acute chest pain x few days, intermittent
10/21/24 04:22
Add On- LAB Urgent
Tests Added?: lipase
10/21/24 04:26
Troponin I Urgent
Abnormal Lab Results
10/21/24
00:17
MPV 11.0 H fL
(7.4-10.4)
Abs Immat Gran (auto) 0.1 H 10^3/uL
(0-0.05)
Absolute Lymphs (auto) 3.8 H 10^3/uL
(1.2-3.4)
Immature Gran % 0.9 H %
(0-0.5)
Chloride 110 H mmol/L
(98-107)
Glucose 124 H mg/dl
(70-99)
ALT 45 H U/L
(0-35)
10/21/24 00:17
10/21/24 00:17
Vital Signs
Initial and Last Documented VS:
Initial Vital Signs
Temp Pulse Resp BP Pulse Ox
97.9 F 70 20 146/84 96
10/21/24 00:02 10/21/24 00:02 10/21/24 00:02 10/21/24 00:02 10/21/24 00:02
Last Documented Vital Signs
Temp Pulse Resp BP Pulse Ox
97.9 F 60 18 143/77 100
10/21/24 00:02 10/21/24 06:30 10/21/24 06:30 10/21/24 06:30 10/21/24 06:30
MDM/Problems Addressed
Differential Diagnosis Includes:
Concern for ACS, costochondritis, GERD, gastritis, biliary colic/cholecystitis.
Exam notable for left parasternal tenderness to palpation as well as some right upper quadrant tenderness to palpation. Initially denied abdominal pain but with right upper quadrant tenderness to palpation on exam she does note intermittent
episodes of right upper quadrant pain over the past few weeks to perhaps months. This does not appear to coincide with current chest pain.
EKG is unremarkable and unchanged from previous.
Thus far labs are unremarkable including negative troponin. Minimally elevated ALT, similar noted previously.
Will check lipase assess for potential pancreatitis.
Will repeat troponin.
Will check chest x-ray as well as abdominal ultrasound.
Chronic conditions affecting care: HTN and Other (Hyperlipidemia; GERD)
*Radiology
Radiology exam reviewed: preliminary read by ED provider (Chest x-ray is unremarkable. Clear lung palma.)
*Pulse Oximetry
SaO2: 100
Oxygen Mode of Delivery: Room air
Patient hypoxic: no
*EKG
Interpreted by ED Provider?: Yes
Interpretation: normal
Comparison EKG: no changes
Rate: normal
Rhythm: sinus
[place]: normal axis
Interval: normal interval
QRS Pattern: normal QRS
Ischemia: no ischemia
*Pre Assembly Wirer Interpretation
Rate: normal
Interpretation: normal
Rhythm: sinus
*Critical Care Note
Total Time (30-74mins, 75-104mins- exclusive of procedures): Not Applicable
Update Note
Update Note:
05:35
Patient continues to sleep in undisturbed.
Repeat troponin remains negative/flat.
Chest x-ray is unremarkable.
Abdominal ultrasound shows gallstones without evidence of cholecystitis. Normal common bile duct.
Patient does continue with mild tenderness to palpation left distal costochondral region and I suspect her chest discomfort is musculoskeletal in nature.
No significant abdominal tenderness and I suspect her intermittent right upper quadrant tenderness may be related to gallstones. I suspect she has 2 separate issues.
She does have a history of GERD, maintained on Pepcid. With reproducible left parasternal chest pain, less likely GERD in nature but encouraged to continue Pepcid.
Recommend strict low-fat diet.
Patient has follow-up appointment scheduled with her gis administrator, Dr. Asif for tomorrow.
Encourage prompt follow-up with PCP as well.
ED Attending Note
-
Portions of this chart may have been created with voice recognition software.� Occasional wrong word or��sound alike� substitutions may have occurred due to the inherent limitations of voice recognition software.
Discharge Plan
Departure
Patient Disposition: Home (Routine Discharge)
Date of Disposition: 10/21/24
Time of Disposition: 05:47
Patient with high blood pressure during this ER visit?: No
Condition: Good
Discharge Problem:
Nonspecific chest pain, Cholelithiases
Instructions: Costochondritis (DC), Low-fat diet, Gallstones - ED discharge instructions
Prescriptions:
No Action
atorvastatin 40 MG tablet
40 mg PO DAILY
amlodipine 5 MG tablet
5 mg PO DAILY
epinephrine [EpiPen] 0.3 mg/0.3 mL Auto-Injector
0.3 mg IM Q5-15M PRN (Reason: anaphylaxis)
ascorbic acid (vitamin C) [Vitamin C] 500 MG tablet
500 mg PO DAILY
albuterol sulfate [ProAir HFA] 90 mcg/actuation Hfa Aerosol Inhaler
2 puff INHALATION 6XD PRN (Reason: asthma)
epinephrine [EpiPen 2-Jeff] 0.3 mg/0.3 mL auto-injector
0.3 mg IM ONCE Qty: 2 0RF
prednisone 50 mg tablet
50 mg PO DAILY Qty: 5 0RF
albuterol sulfate 2.5 mg /3 mL (0.083 %) solution for nebulization
2.5 mg inhalation Q4H PRN (Reason: shortness of breath or wheezing) Qty: 75 0RF
doxycycline monohydrate 100 mg capsule
100 mg PO BID Qty: 13 0RF
Referrals:
Inocencia Wallace CRNP [Family Provider, Internal Medicine] - Call in 1-3 days for appt
Moi Asif MD [Active, Cardiology] - Keep scheduled appt
Interventions
Interventions:
*Risk Screen - Suicide Last Done: 10/21/24 00:02
*General Assessment Last Done: 10/21/24 06:31
*Neglect/Abuse Screening Last Done: 10/21/24 00:02
*ED- Fall Risk Assessment Last Done: 10/21/24 06:31
*ED COVID-19 Vaccine History Last Done: 10/21/24 06:31
*Nursing Disposition Last Done: 10/21/24 06:31
ED- Cardiac Assessment Last Done: 10/21/24 01:30
Discharge Date and Time
Discharge Date/Time: 10/21/24 06:32
Print Language: LEBANESE
[2024-10-21 06:30] VITALS: BP 143/77
== END 2024-10-21 06:32 | disposition home or self-care (01) ==
LOC: EMR 23:57
PROVIDERS: EMERGENCY PHYSICIAN Emergency Medicine; FAMILY PHYSICIAN Nurse Practitioner Primary Care
DX: R07.89 Other chest pain (principal); K80.20 Calculus of gallbladder without cholecystitis without obstruction; I10 Essential (primary) hypertension; E78.00 Pure hypercholesterolemia, unspecified; K21.9 Gastro-esophageal reflux disease without esophagitis; E66.9 Obesity, unspecified; Z82.49 Family history of ischemic heart disease and other diseases of the circulatory system; Z87.891 Personal history of nicotine dependence
CPT/HCPCS: 99284; 71046; 76700; 80053; 83690; 84484; 85025; 93005

== ENCOUNTER 2024-10-27 10:30 | Outpatient (RCR) | payer OTHER, SELFPAY | END 2024-10-27 23:59 | disposition home or self-care (01) | LOC: ROT 10:30 | PROVIDERS: ATTENDING PHYSICIAN Nurse Practitioner Adult Health; FAMILY PHYSICIAN Nurse Practitioner Primary Care | DX: R41.89 Other symptoms and signs involving cognitive functions and awareness (principal); Z73.6 Limitation of activities due to disability; G44.309 Post-traumatic headache, unspecified, not intractable; F07.81 Postconcussional syndrome; V43.92XD Unspecified car occupant injured in collision with other type car in traffic accident, subsequent encounter | CPT/HCPCS: 92507; 97530; 97535 ==

== ENCOUNTER → 2024-11-16 09:14 | Outpatient (REF) | payer OTHER, SELFPAY | LOC: PAVMRI 09:14 | PROVIDERS: ATTENDING PHYSICIAN Physician Assistant; FAMILY PHYSICIAN Nurse Practitioner Primary Care | DX: M54.16 Radiculopathy, lumbar region (principal) | CPT/HCPCS: 72148 ==

== ENCOUNTER → 2024-11-17 11:19 | Outpatient (REF) | payer OTHER, SELFPAY | LOC: MRI 3T 11:19 | PROVIDERS: ATTENDING PHYSICIAN Nurse Practitioner; FAMILY PHYSICIAN Nurse Practitioner Primary Care | DX: K86.2 Cyst of pancreas (principal) | CPT/HCPCS: 74183; A9575 ==

== ENCOUNTER 2024-11-26 10:23 | Outpatient (RCR) | payer OTHER, SELFPAY | END 2024-11-26 23:59 | disposition home or self-care (01) | LOC: ROT 10:23 | PROVIDERS: ATTENDING PHYSICIAN Nurse Practitioner Adult Health; FAMILY PHYSICIAN Nurse Practitioner Primary Care | DX: R41.89 Other symptoms and signs involving cognitive functions and awareness (principal); Z73.6 Limitation of activities due to disability; G44.309 Post-traumatic headache, unspecified, not intractable; F07.81 Postconcussional syndrome; V43.92XD Unspecified car occupant injured in collision with other type car in traffic accident, subsequent encounter | CPT/HCPCS: 92507; 97110; 97530; 97535 ==

== ENCOUNTER 2024-12-05 20:03 | Emergency (ER) | payer OTHER, SELFPAY ==
[2024-12-05 20:10] VITALS: BP 131/89
[2024-12-05 20:24] LABS: Hematocrit 39.3 % (37.0-47.0); Hemoglobin 13.5 g/dL (12.0-16.0); Mean Corp Hgb Conc. 34.4 g/dL (33.0-37.0); Mean Corpuscular Volume 82.9 fL (81.0-99.0); Nucleated Red Blood Cells % 0 %; Platelet Count 259 10^3/uL (130-400); Red Cell Dist. Width 12.8 % (11.5-14.5)
[2024-12-05 20:48] LABS: ALT (SGPT) 39 U/L (0-35); AST (SGOT) 35 U/L (14-36); Albumin 5.0 g/dl (3.5-5.0); Alkaline Phosphatase 91 U/L (38-126); Blood Urea Nitrogen 14 mg/dl (7-17); Calcium 10.0 mg/dl (8.4-10.2); Carbon Dioxide 27 mmol/L (22-30); Chloride 104 mmol/L (98-107); Glucose 104 mg/dl (70-99); Potassium 3.4 mmol/L (3.5-5.1); Sodium 141 mmol/L (135-145); Total Protein 7.6 g/dl (6.3-8.2); eGFR > 60.00
[2024-12-05 21:00] LABS: Troponin I < 0.012 ng/ml
--- NOTE | 2024-12-05 21:20 | ED.GENMED ---
History of Present Illness
General
Chief Complaint: Chest Pain
Time Seen by Provider: 12/05/24 21:20
Nursing documentation reviewed up to this point in time: agreed with
History of Present Illness
History of Present Illness:
69-year-old female presents to the ER for evaluation of chest pain which has been present for the last 20 minutes. She describes it to be waxing and waning in intensity beneath her left breast. She states that she has had pain in this area several
times previously of unclear etiology. She has no prior personal history of ACS but does take medication for hypertension and high cholesterol. She has seen cardiology in the past for evaluation. She does also have a significant prior history of
GERD-she uses Pepcid as needed for her symptoms. She denies any fevers and chills. No recent change in exercise tolerance. She has noted some peripheral edema over the last several weeks and had her dose of amlodipine adjusted as her iron cutter
and primary care physician felt that it was related to this.
Past History
Past History
ED Past Medical History: GERD, HTN, Hypercholesterolemia and Other (Obesity); Negative CAD or [place]
ED Past Surgical History: Gynecological (D&C), Tonsilectomy and Other (Food allergy with walnuts)
Social History
Tobacco: Former smoker
Alcohol: None
Drug: None
Personal: Single
Living: with family
Employment: Employed
Family History
Family History: Hypertension and CAD; Negative Sudden
Phy Exam
Physical Exam
Physical Exam:
Patient is awake, alert, appears in no acute distress though she is continuously rubbing below her left breast during interview, PERRL, EOMI, conjunctiva pink, mucous membranes moist, no JVD noted, heart regular rate and rhythm without murmurs or
ectopy, lungs are clear to auscultation without wheezes rales or rhonchi, abdomen is soft, nontender, no guarding or rebound, extremities with trace edema to the ankles, no calf pain on palpation, 2+ DP pulses present symmetric, GCS is 15
Scores
Heart Score for Chest Pain Patients
STEMI patient?: No
History: Slightly or Non-Suspicious
ECG: Normal
Age: >/= 65 years
Risk Factors: 1 or 2 Risk Factors
Troponin: </= Normal Limit
Heart Score for Chest Pain Patients: 3
Heart Score Risk: 2.5% MACE over next 6 weeks
Course
Orders/Labs/Results
Orders:
Orders
12/05/24 20:05
ECG [Electrocardiogram (*1)] Urgent
Reason for Study: Chest Pain
EKG- Treatment ONCE
12/05/24 20:18
Complete Blood Count/With Diff Urgent
Comprehensive Metabolic Panel Urgent
Troponin I Urgent
12/05/24 21:30
EKG- Treatment ONCE
12/05/24 21:31
Famotidine [Pepcid] 20 mg IV NOW STA
Morphine Sulfate 2 mg IV NOW STA
12/05/24 22:29
CR Chest - 2 Views Urgent
Comment:
Reason For Exam: chest pain
12/05/24 22:30
Electrocardiogram (*1) Urgent
Reason for Study: Chest Pain
12/05/24 22:31
Troponin I Urgent
Abnormal Lab Results
12/05/24
20:18
MPV 10.9 H fL
(7.4-10.4)
Absolute Monos (auto) 0.8 H 10^3/uL
(0.1-0.6)
Monocytes % 9.5 H %
(1.7-9.3)
Potassium 3.4 L mmol/L
(3.5-5.1)
Glucose 104 H mg/dl
(70-99)
ALT 39 H U/L
(0-35)
12/05/24 20:18
12/05/24 20:18
I discussed with patient very reassuring labs so far, including initial troponin is negative. EKG is also normal
Vital Signs
Initial and Last Documented VS:
Initial Vital Signs
Temp Pulse Resp BP Pulse Ox
98.2 F 75 16 131/89 93
12/05/24 20:10 12/05/24 20:10 12/05/24 20:10 12/05/24 20:10 12/05/24 20:10
Last Documented Vital Signs
Temp Pulse Resp BP Pulse Ox
98.2 F 67 22 122/81 96
12/05/24 20:10 12/05/24 22:30 12/05/24 22:30 12/05/24 22:00 12/05/24 22:30
MDM/Problems Addressed
Differential Diagnosis Includes:
Differential diagnosis to consider but not limited to ACS, esophageal spasm, GERD, reflux, muscle spasm along with other etiologies considered
Chronic conditions affecting care:
Hypertension, hyperlipidemia, GERD
*Radiology
Radiology exam reviewed: preliminary read by ED provider (I independent viewed and interpreted two-view chest x-ray showing clear lungs, normal cardiac silhouette, no change compared to prior from 10/21/2024)
*Pulse Oximetry
SaO2: 93
Oxygen Mode of Delivery: Room air
Patient hypoxic: no
*EKG
Interpreted by ED Provider?: Yes (I independently reviewed and interpreted twelve-lead EKG showing normal sinus rhythm, rate 71, normal axis, normal intervals, no ST elevation, this is a normal tracing similar to prior from 10/21/2024)
*Solar Technician Interpretation
Rate: normal (I independently viewed and interpreted rhythm strip showing normal sinus rhythm, no ectopy)
*Critical Care Note
Total Time (30-74mins, 75-104mins- exclusive of procedures): Not Applicable
Update Note
Update Note:
Patient resting comfortably, with complete symptomatic relief with Pepcid administered in the ER. I discussed with patient very reassuring workup, normal chest x-ray, negative troponin x 2. I discussed with her need for better control of her acid
reflux, along with need to follow-up with her iron cutter. Patient expressed understanding of full discharge instructions and has no questions at the current time.
ED Attending Note
-
Portions of this chart may have been created with voice recognition software.� Occasional wrong word or��sound alike� substitutions may have occurred due to the inherent limitations of voice recognition software.
Discharge Plan
Departure
Patient Disposition: Home (Routine Discharge)
Date of Disposition: 12/05/24
Time of Disposition: 23:16
Patient with high blood pressure during this ER visit?: No
Discharge Problem:
Chest pain
Instructions: Chest Pain DCA Follow Up
Prescriptions:
New
pantoprazole [Protonix] 40 mg tablet,delayed release (DR/EC)
40 mg PO DAILY Qty: 20 0RF
No Action
atorvastatin 40 MG tablet
40 mg PO DAILY
amlodipine 5 MG tablet
5 mg PO DAILY
epinephrine [EpiPen] 0.3 mg/0.3 mL Auto-Injector
0.3 mg IM Q5-15M PRN (Reason: anaphylaxis)
ascorbic acid (vitamin C) [Vitamin C] 500 MG tablet
500 mg PO DAILY
albuterol sulfate [ProAir HFA] 90 mcg/actuation Hfa Aerosol Inhaler
2 puff INHALATION 6XD PRN (Reason: asthma)
epinephrine [EpiPen 2-Jeff] 0.3 mg/0.3 mL auto-injector
0.3 mg IM ONCE Qty: 2 0RF
prednisone 50 mg tablet
50 mg PO DAILY Qty: 5 0RF
albuterol sulfate 2.5 mg /3 mL (0.083 %) solution for nebulization
2.5 mg inhalation Q4H PRN (Reason: shortness of breath or wheezing) Qty: 75 0RF
doxycycline monohydrate 100 mg capsule
100 mg PO BID Qty: 13 0RF
Referrals:
Inocencia Wallace CRNP [Family Provider, Internal Medicine]
Eric Gaytan MD [Active, Gastroenterology] - Next open appointment
Activity Restrictions/Additional Instructions:
Continue using Pepcid as available [id number] daily while you are starting using pantoprazole for your symptoms. Please contact with cardiology office and gastroenterology office to schedule appointment for reevaluation and further care.
Return to the ER for any concerns
Interventions
Interventions:
*Risk Screen - Suicide Last Done: 12/05/24 20:08
*General Assessment Last Done: 12/05/24 20:08
*Neglect/Abuse Screening Last Done: 12/05/24 20:08
*ED- Fall Risk Assessment Last Done: 12/05/24 21:54
*ED COVID-19 Vaccine History Last Done: 12/05/24 21:54
ED- Cardiac Assessment Last Done: 12/05/24 21:52
Discharge Date and Time
Print Language: KAZAKH
[2024-12-05] MEDS: PEPCID 20 MG IV (21:46)
[2024-12-05] MEDS: MORPHINE SULFATE 2 MG IV (21:47)
[2024-12-05 21:51] VITALS: BMI 28.8
[2024-12-05 22:00] VITALS: BP 122/81
[2024-12-05 23:15] LABS: Troponin I < 0.012 ng/ml
[2024-12-06 00:03] VITALS: BP 142/83
[2024-12-06 00:10] VITALS: BP 142/83
== END 2024-12-06 01:30 | disposition home or self-care (01) ==
LOC: EMR 20:03
PROVIDERS: Emergency Medicine; EMERGENCY PHYSICIAN Emergency Medicine; FAMILY PHYSICIAN Nurse Practitioner Primary Care
DX: R07.9 Chest pain, unspecified (principal); I10 Essential (primary) hypertension; E78.00 Pure hypercholesterolemia, unspecified; Z87.891 Personal history of nicotine dependence
CPT/HCPCS: 99285; 96374; 96375; 71046; 80053; 84484; 85025; 93005

== ENCOUNTER 2024-12-31 11:07 | Outpatient (RCR) | payer OTHER, SELFPAY | END 2024-12-31 23:59 | disposition home or self-care (01) | LOC: ROT 11:07 | PROVIDERS: ATTENDING PHYSICIAN Nurse Practitioner Adult Health; FAMILY PHYSICIAN Nurse Practitioner Primary Care | DX: R41.89 Other symptoms and signs involving cognitive functions and awareness (principal); Z73.6 Limitation of activities due to disability; G44.309 Post-traumatic headache, unspecified, not intractable; F07.81 Postconcussional syndrome; R41.841 Cognitive communication deficit; V43.92XD Unspecified car occupant injured in collision with other type car in traffic accident, subsequent encounter | CPT/HCPCS: 92507; 97110; 97530; 97535; 97537 ==

== ENCOUNTER → 2025-01-17 13:34 | Outpatient (REF) | payer OTHER, SELFPAY ==
[2025-01-17 15:08] LABS: Hematocrit 42.3 % (37.0-47.0); Hemoglobin 13.6 g/dL (12.0-16.0); Mean Corp Hgb Conc. 32.2 g/dL (33.0-37.0); Mean Corpuscular Volume 85.8 fL (81.0-99.0); Nucleated Red Blood Cells % 0 %; Platelet Count 273 10^3/uL (130-400); Red Cell Dist. Width 13.8 % (11.5-14.5)
[2025-01-17 15:20] LABS: C-Reactive Protein 13.80 mg/L (0.0-10.00)
[2025-01-17 15:23] LABS: Blood Urea Nitrogen 21 mg/dl (7-17); Calcium 9.8 mg/dl (8.4-10.2); Carbon Dioxide 27 mmol/L (22-30); Chloride 104 mmol/L (98-107); Glucose 92 mg/dl (70-99); Iron 93 ug/dl (37-170); Magnesium 2.3 mg/dl (1.6-2.3); Potassium 4.1 mmol/L (3.5-5.1); Sodium 139 mmol/L (135-145); eGFR > 60.00
[2025-01-17 15:32] LABS: Total Iron Binding Capacity 314 ug/dl (265-497)
[2025-01-17 15:57] LABS: Ferritin 218.0 ng/ml (11.1-264.0)
== END ==
LOC: REG 13:34
PROVIDERS: ATTENDING PHYSICIAN Nurse Practitioner; FAMILY PHYSICIAN Nurse Practitioner Primary Care
DX: G43.709 Chronic migraine without aura, not intractable, without status migrainosus (principal); I10 Essential (primary) hypertension; R73.03 Prediabetes; R74.8 Abnormal levels of other serum enzymes
CPT/HCPCS: 36415; 80048; 82728; 83540; 83550; 83735; 84443; 85025; 85652; 86140; 86618

== ENCOUNTER → 2025-01-20 07:46 | Outpatient (REF) | payer OTHER, SELFPAY ==
--- NOTE | 2025-01-20 13:42 | EEG.RPT ---
Electroencephalogram Report
Recording
Date of EE01/20/25
Type of EEG: Routine
Length of EEG recordin minutes
Done with Video Recording: Yes
Patient Status: Inpatient
Recording Conditions: Awake and Drowsy
Hyperventilation Performed: Yes
Photic Stimulation Performed: Yes
Report
GREATER THAN 1 HOUR EEG INTERPRETATION:
Unremarkable EEG for age
CLINICAL CORRELATION:
A normal EEG does not rule out a diagnosis of epilepsy. If clinical suspicion for seizure persists, a prolonged recording may be warranted.
Clinical correlation is advised.
METHODS:
A 21 channel digitized electroencephalogram (EEG) was performed using the 10/20 international system of electrode placement and one-lead of ECG recorded. The [employer] quantitative EEG system was utilized.
ELECTROENCEPHALOGRAPHER IMPRESSION(S):
Quality of study
Good
Background
There was an unremarkable anterior-posterior voltage gradient of alpha frequency.
With eye opening the background activity changed to a low voltage mixture of frequencies.
There were no significant asymmetries of background activity noted.
Sleep
Drowsiness present
Stage 1 present
Stage 2 present
Hyperventilation
No activation
Photic Stimulation
No activation
ECG
Normal sinus rhythm
== END ==
LOC: EEG 07:46
PROVIDERS: ATTENDING PHYSICIAN Nurse Practitioner Primary Care
DX: R41.89 Other symptoms and signs involving cognitive functions and awareness (principal); F07.81 Postconcussional syndrome
CPT/HCPCS: 95813

== ENCOUNTER → 2025-03-14 11:28 | Outpatient (REF) | payer OTHER, SELFPAY | LOC: HWRCS 11:28 | PROVIDERS: ATTENDING PHYSICIAN Family Medicine; FAMILY PHYSICIAN Nurse Practitioner Primary Care | DX: I10 Essential (primary) hypertension (principal); E78.2 Mixed hyperlipidemia; R07.89 Other chest pain | CPT/HCPCS: 78452; 93017; A9500; J2785 ==

== ENCOUNTER → 2025-04-09 09:27 | Outpatient (REF) | payer OTHER, SELFPAY ==
[2025-04-09 12:06] LABS: ALT (SGPT) 42 U/L (0-35); AST (SGOT) 34 U/L (14-36); Albumin 4.9 g/dl (3.5-5.0); Alkaline Phosphatase 93 U/L (38-126); Blood Urea Nitrogen 14 mg/dl (7-17); Calcium 9.1 mg/dl (8.4-10.2); Carbon Dioxide 28 mmol/L (22-30); Chloride 102 mmol/L (98-107); Glucose 96 mg/dl (70-99); Potassium 3.9 mmol/L (3.5-5.1); Sodium 138 mmol/L (135-145); Total Protein 7.5 g/dl (6.3-8.2); eGFR > 60.00
[2025-04-09 13:53] LABS: Glycohemoglobin (HgbA1c) 6.4 % (4.0-5.9)
== END ==
LOC: REG 09:27
PROVIDERS: ATTENDING PHYSICIAN Internal Medicine Gastroenterology; FAMILY PHYSICIAN Nurse Practitioner Primary Care
DX: K76.0 Fatty (change of) liver, not elsewhere classified (principal); R73.01 Impaired fasting glucose; R73.03 Prediabetes
CPT/HCPCS: 36415; 80053; 82248; 83036

== ENCOUNTER 2025-04-12 06:29 | Day surgery (SDC) | payer OTHER, SELFPAY | END 2025-04-12 15:00 | disposition home or self-care (01) | LOC: GI 06:29 | PROVIDERS: ATTENDING PHYSICIAN Internal Medicine Gastroenterology | DX: K62.5 Hemorrhage of anus and rectum (principal); K64.9 Unspecified hemorrhoids; K55.20 Angiodysplasia of colon without hemorrhage; K63.89 Other specified diseases of intestine; D12.3 Benign neoplasm of transverse colon | CPT/HCPCS: 45380; 88305 ==